=== PATIENT | female | born 1975 | race Caucasian/White ===

== ENCOUNTER 2016-10-12 11:12 | Emergency (ER) | payer OTHER ==
[~2016-10-12] VITALS: Ht 160 cm; Wt 62.1 kg
[~2016-10-12 11:12] MED LIST: MEDROL DOSEPAK1 PAC PO; TESSALON PERLE100 MG PO; ZITHROMAX Z-PA250 M1 PO
[2016-10-12 12:22] LABS: ABSOLUTE BASOPHIL COUNT 0 /CUMM (0.0-0.2); ABSOLUTE EOSINOPHIL COUNT 0 /CUMM (0.0-0.7); ABSOLUTE GRANULOCYTE CT 1.9 /CUMM (1.4-6.5); ABSOLUTE LYMPH COUNT 0.4 /CUMM (1.2-3.4); ABSOLUTE MONOCYTE COUNT 0.1 /CUMM (0.10-0.60); BASOPHIL % 0.6 % (0.0-2.0); EOSINOPHIL % 0 % (0-5); MEAN CORPUSCULAR HGB 35.5 PG (27.0-31.0); MEAN CORPUSCULAR HGB CONC 34.6 G/DL (33.0-37.0); MEAN CORPUSCULAR VOLUME 102.4 FL (81.0-99.0); MEAN PLATELET VOLUME 7.6 FL (7.4-10.4); RBC DISTRIBUTION WIDTH 14.1 % (11.5-14.5); RED BLOOD CELL CT 3.81 /CUMM (4.20-5.40); WHITE BLOOD CELL COUNT 2.5 /CUMM (4.8-10.8)
[2016-10-12 12:36] LABS: GRANULOCYTE % 77.7 % (42.2-75.2)
[2016-10-12 13:02] LABS: PLATELET COUNT 95 /CUMM (130-400)
--- NOTE | 2016-10-12 13:21 | ED GENERAL ADULT ---
History of Present Illness General Chief Complaint: Uterine Contractions(Pregnacy) Stated Complaint: SIB MD FOR MISCARRAGE? Source: patient Exam Limitations: no limitations Vital Signs & Intake/Output Vital Signs & Intake/Output Vital Signs Date Time Temp Pulse Resp B/P B/P Pulse O2 O2 Flow FiO2 Mean Ox Delivery Rate 10/12 1502 97.0 80 20 120/78 100 Room Air 10/12 1121 99.5 92 20 120/82 96 Room Air Allergies Coded Allergies: latex (Mild, ITCHING 10/12/16) epinephrine (UNKNOWN 10/12/16) Reconcile Medications Paroxetine HCl 20 MG TABLET 1 TAB PO DAILY MENTAL HEALTH (Reported) Triage Note: PT TO ED C/O VAGINAL BLEEDING A FEW DAYS. WENT TO SEE DR ROSAS, PT HAD 1 POSITIVE TEST AND 1 NEGATIVE. SENT TO ED FOR FURTHER EVAL NO OBGYN'S COULD SEE HER TODAY. PT STATES SHE HAD HER MENSES 2 WEEKS AGO. STARTED BLEEDING WITH CLOTS A FEW DAYS AGO. Triage Nurses Notes Reviewed? yes Onset: Abrupt Duration: day(s): Timing: recent history : No Patient currently breastfeeds: No HPI: 10/12/16 2:30 PM 41-year-old female presents to the emergency department for vaginal bleeding. According to the patient she says that she has been having vaginal bleeding and was told that she may be having a miscarriage. She says she had a positive test. Now in the emergency department she admits to low-grade fever and vaginal bleeding. She also admits to mild cough. The onset of the symptoms were abrupt, the duration has been just the past several days, the severity is significant as her symptoms required her to come to the emergency department for care.. She is a 3 para 2 Her last menstrual period was approximately 6 weeks ago Labs revealed minimal leukopenia. Both serum and urine tests are negative Past History Travel History Traveled to [place] past 21 day No Medical History Any Pertinent Medical History? see below for history Psychiatric: anxiety Tetanus Vaccine: 05/31/11 Surgical History Surgical History: non-contributory Psychosocial History What is your primary language Ukrainian Tobacco Use: Current Daily Use Daily Tobacco Use Amount/Type: => 5 Cigarettes daily ETOH Use: denies use Illicit Drug Use: denies illicit drug use Family History Hx Contributory? No Review of Systems Review of Systems Constitutional: Reports: no symptoms. EENTM: Reports: no symptoms. Respiratory: Reports: cough. Cardiovascular: Reports: no symptoms. Denies: chest pain. GI: Reports: see HPI. Denies: vomiting. Genitourinary: Reports: no symptoms. Denies: dysuria. Musculoskeletal: Reports: no symptoms. Skin: Reports: no symptoms. Neurological/Psychological: Reports: no symptoms. Hematologic/Endocrine: Reports: see HPI. Immunologic/Allergic: Reports: no symptoms. All Other Systems: Reviewed and Negative Physical Exam Physical Exam General Appearance: well developed/nourished, alert, awake, anxious Head: atraumatic, normal appearance Eyes: Bilateral: normal appearance, PERRL, EOMI. Ears, Nose, Throat: normal pharynx, normal ENT inspection Neck: normal inspection, supple, full range of motion Respiratory: normal breath sounds, chest non-tender, no respiratory distress Cardiovascular: regular rate/rhythm Peripheral Pulses: 4+ radial (R), 4+ radial (L) Gastrointestinal: soft, non-tender Back: normal range of motion Extremities: normal inspection, normal range of motion Neurologic/Psych: no motor/sensory deficits, awake, alert, oriented x 3 Skin: intact, normal color, warm/dry Core Measures ACS in differential dx? No CVA/TIA Diagnosis: No Severe Sepsis Present: No Septic Shock Present: No Progress Differential Diagnoses I considered the following diagnoses in my evaluation of the patient: Ectopic , missed , septic , cervicitis, ovarian cyst] Plan of Care: Orders Procedure Date/time Status Add-on Test (ER Only) 10/12 1442 Active Add-on Test (ER Only) 10/12 1428 Active Add-on Test (ER Only) 10/12 1425 Active LYME TITRE 10/12 1137 Active HUMAN BETA HCG SCREEN 10/12 1137 Complete COMPREHENSIVE METABOLIC PANEL 10/12 1137 Complete CBC WITHOUT DIFFERENTIAL 10/12 1137 Complete ANAPLASMA PHAGOCYTOPHILUM DNA 10/12 1137 Active CHLAMYDIA-GC DNA PROBE 10/12 1125 Active URINE 10/12 1125 Complete URINALYSIS 10/12 1125 Complete Laboratory Tests 10/12/16 1207: Anion Gap 7, Estimated GFR > 60, BUN/Creatinine Ratio 8.8, Glucose 87, Calcium 8.6, Total Bilirubin 0.4, AST 55 H, ALT 37, Alkaline Phosphatase 72, Total Protein 6.6, Albumin 3.7, Globulin 2.9, Albumin/Globulin Ratio 1.3, Total Beta HCG NEGATIVE, CBC w Diff NO MAN DIFF REQ, RBC 3.81 L, MCV 102.4 H, MCH 35.5 H , RDW 14.1, MPV 7.6, Gran % 77.7 H, Lymphocytes % 16.8 L, Monocytes % 4.9, Eosinophils % 0, Basophils % 0.6, Absolute Granulocytes 1.9, Absolute Lymphocytes 0.4 L, Absolute Monocytes 0.1 L, Absolute Eosinophils 0, Absolute Basophils 0, PUBS MCHC 34.6 10/12/16 1137: Lyme Disease Antibody Pending 10/12/16 1137: A.phagocytophil DNA PCR Pending 10/12/16 1134: Urinalysis LIGHT H, Urine Color SUE, Urine Clarity CLEAR, Urine pH 7.0, Ur Specific [place]cette 1.020, Urine Protein 100 H, Urine Ketones NEG, Urine Nitrite NEG, Urine Bilirubin NEG@ICTO, Urine Urobilinogen 0.2, Ur Leukocyte Esterase NEG , Ur Microscopic SEDIMENT EXAMINED, Urine RBC 10-15 H, Urine WBC 1-3 H, Ur Epithelial Cells MANY H, Urine Bacteria MOD H, Urine Mucus FEW, Urine Hemoglobin LARGE H, Urine Glucose NEG, Urine Test NEGATIVE Microbiology 10/12 1124 URINE ROUT: GC DNA Probe - RECD 10/12 1124 URINE ROUT: Chlamydia DNA Probe (ISAIAS) - RECD Initial ED EKG: none Departure Departure Disposition: HOME OR SELF CARE Condition: Stable Clinical Impression Primary Impression: Vaginal bleeding Referrals: JOAQUIN MCCLOUD,AMANDA Long (PCP/Family) Departure Forms: Customer Survey General Discharge Information Comments Labs were unremarkable other than mild leukopenia. She was treated with Rocephin and doxycycline. Urine GC and chlamydia were sent. Outpatient ultrasound was requested. Lyme and Anaplasma testing was ordered. Critical Care Note Critical Care Note Critical Care Time: non-applicable
[2016-10-12] MEDS ORDERED: PAROXETINE HCL20 M1 PO (14:02)
[2016-10-12 15:02] VITALS: BP 120/78
== END 2016-10-12 15:10 ==
LOC: ERH 11:12
PROVIDERS: Emergency Medicine
DX: N93.9 Abnormal uterine and vaginal bleeding, unspecified (principal); D72.819 Decreased white blood cell count, unspecified; R50.9 Fever, unspecified
CPT/HCPCS: 86618; 87798; 81001; 81025; 87491; 87591; 96372; J0696